=== PATIENT | male | born 1985 | race Caucasian/White ===

== ENCOUNTER 2022-10-08 12:55 | Outpatient (CLI) | payer OTHER, SELFPAY ==
--- NOTE | 2022-10-08 13:04 | XRR_ITS ---
PROCEDURE INFORMATION: Exam: XR Left Foot Exam date and time: 10/08/2022 1:15 PM Age: 37 years old Clinical indication: Injury or trauma; Fall; Sprain or strain; Left; Injury details: --lt foot pain medial side proximal meta tarsal to tarsal area for 2 months ago rolled foot; Additional info: W11. Xxxa - fall on and from ladder, initial encounter TECHNIQUE: Imaging protocol: Radiologic exam of the Left foot. Views: 3 or more views. COMPARISON: No relevant prior studies available. FINDINGS: Bones/joints: Normal. Soft tissues: Normal. XR/XR foot LT min 3V* [id number] IMPRESSION: No acute findings.
== END 2022-10-08 12:56 | disposition home or self-care (01) ==
LOC: RAD 12:59
PROVIDERS: PCP Nurse Practitioner Family; Visit Provider Registered Nurse
DX: M79.672 Pain in left foot (principal); M25.572 Pain in left ankle and joints of left foot; W11.XXXA Fall on and from ladder, initial encounter
CPT/HCPCS: 73630; 80307